=== PATIENT | female | born 1965 | race Caucasian/White ===

== ENCOUNTER 2024-07-07 12:59 | Emergency (ER) | payer OTHER, MEDICAID ==
[~2024-07-07] VITALS: Ht 165.1 cm; Wt 70.0 kg
[2024-07-07 13:02] VITALS: BP 124/80; PULSE 66; RESP 16; TEMP 98.6; O2SAT 99
== END 2024-07-07 19:34 | disposition left against medical advice (07) ==
LOC: ER 13:11
DX: R51.9 Headache, unspecified (principal); Z53.21 Procedure and treatment not carried out due to patient leaving prior to being seen by health care provider